=== PATIENT | female | born 1990 | race Caucasian/White ===

== ENCOUNTER 2019-10-11 12:16 | Emergency (ER) | payer OTHER ==
[~2019-10-11] VITALS: Ht 157.5 cm; Wt 56.2 kg
--- NOTE | 2019-10-11 12:43 | NUR ---
JONE WILCOX AT BEDSIDE FOR MSE.
[2019-10-11 13:00] LABS: *URINE HCG, QUAL POSITIVE (NEGATIVE)
--- NOTE | 2019-10-11 13:07 | NUR ---
PT TAKEN TO RADIOLOGY FOR CT SCAN.
[2019-10-11 13:12] LABS: BASOPHILS % (AUTO) 0.4 % (0.0-2.0); EOSINOPHILS % (AUTO) 0.9 % (0.0-7.0); HEMATOCRIT 37.3 % (31.2-41.9); HEMOGLOBIN 12.6 g/dL (10.9-14.3); LYMPHOCYTES # (AUTO) 1.1 K/uL (20.0-40.0); LYMPHOCYTES % (AUTO) 27.7 % (20.5-51.5); MEAN CORPUSCULAR HEMOGLOBIN 31.6 uug (24.7-32.8); MEAN CORPUSCULAR HGB CONC 34 g/dL (32.3-35.6); MEAN CORPUSCULAR VOLUME 93.6 fL (75.5-95.3); MONOCYTES # (AUTO) 0.3 K/uL (2.0-10.0); MONOCYTES % (AUTO) 7.7 % (0.0-11.0); NEUTROPHILS # (AUTO) 2.4 K/uL (1.8-8.9); NEUTROPHILS % (AUTO) 63.3 % (38.5-71.5); PLATELET COUNT (AUTO) 119 K/uL (179-408); RED BLOOD CELL COUNT(AUTO) 3.98 MIL/uL (3.63-4.92); WHITE BLOOD COUNT (AUTO) 3.8 K/uL (3.8-11.8)
[2019-10-11 13:20] LABS: CREATININE 0.6 mg/dL (0.6-1.3); POTASSIUM 3.8 mmol/L (3.5-5.1)
[2019-10-11 13:25] LABS: BILIRUBIN,DIRECT 0.1 mg/dL (0.0-0.2); BILIRUBIN,TOTAL 0.2 mg/dL (0.2-1.0)
[2019-10-11 13:26] LABS: TOTAL PROTEIN, SERUM 7.5 g/dL (6.4-8.2)
--- NOTE | 2019-10-11 13:57 | NUR ---
Patient discharged to home in stable conditon. Written and verbal after care instructions given. Patient verbalizes understanding of instructions. ALL BELONGINGS W/ PT. PT SELF-AMBULATED W/O DIFFICULTY.
[2019-10-11 13:58] VITALS: BP 131/88
== END 2019-10-11 14:02 | disposition home or self-care (01) ==
LOC: ER 12:16
DX: O26.891 Other specified pregnancy related conditions, first trimester (principal); H43.392 Other vitreous opacities, left eye; G43.909 Migraine, unspecified, not intractable, without status migrainosus; Z3A.01 Less than 8 weeks gestation of pregnancy; Z90.49 Acquired absence of other specified parts of digestive tract
CPT/HCPCS: 36415; 70450; 84703; 85025; A4663

== ENCOUNTER 2019-10-16 12:48 | Emergency (ER) | payer OTHER ==
[~2019-10-16] VITALS: Ht 157.5 cm; Wt 56.7 kg
--- NOTE | 2019-10-16 13:53 | NUR ---
DR PEÑA EVALUATED THE PT. PT WAS D/C'D TO HOME. D/C INSTRUCTIONS WERE GIVEN TO THE PT BY DR PEÑA.
[2019-10-16 13:54] VITALS: BP 128/78
== END 2019-10-16 13:54 | disposition home or self-care (01) ==
LOC: ER 12:48
DX: Z34.91 Encounter for supervision of normal pregnancy, unspecified, first trimester (principal); Z3A.01 Less than 8 weeks gestation of pregnancy; G43.909 Migraine, unspecified, not intractable, without status migrainosus; Z90.49 Acquired absence of other specified parts of digestive tract; Z88.0 Allergy status to penicillin; Z60.2 Problems related to living alone
CPT/HCPCS: A4663